=== PATIENT | female | born 1950 | race Caucasian/White ===

== ENCOUNTER 2017-06-06 17:15 | Emergency (ER) | payer MEDICARE, OTHER ==
[~2017-06-06] VITALS: Ht 157.5 cm; Wt 45.0 kg
[~2017-06-06 17:15] MED LIST: MEMA21CA PO; MONT5TAB13 PO; PRAV10TA2 PO; RISP1 PO
[2017-06-06] MEDS ORDERED: DONE10TA8 PO (17:42)
[2017-06-06] MEDS ORDERED: VARI1940 SQ (17:42)
[2017-06-06] MEDS ORDERED: ZOLP5 PO (17:43)
[2017-06-06] MEDS ORDERED: QUET25TA PO (17:43)
[2017-06-06] MEDS ORDERED: LORazepam 0.5 MG TABLET PO ONE (18:00)
[2017-06-06 20:30] VITALS: BP 128/68
== END 2017-06-06 20:58 | disposition home or self-care (01) ==
LOC: EMS 17:17
DX: S00.03XA Contusion of scalp, initial encounter (principal); F03.90 Unspecified dementia, unspecified severity, without behavioral disturbance, psychotic disturbance, mood disturbance, and anxiety; E78.00 Pure hypercholesterolemia, unspecified; J45.909 Unspecified asthma, uncomplicated; Z79.899 Other long term (current) drug therapy; Z87.891 Personal history of nicotine dependence; W10.9XXA Fall (on) (from) unspecified stairs and steps, initial encounter; Y93.01 Activity, walking, marching and hiking; Y92.89 Other specified places as the place of occurrence of the external cause; Y99.8 Other external cause status
CPT/HCPCS: 70450; 72125; 99284